=== PATIENT | female | born 1965 | race African-American/Black ===

== ENCOUNTER 2021-05-18 08:53 | Outpatient (CLI) | payer BC | END 2021-05-18 08:54 | disposition home or self-care (01) | LOC: BICRAD 08:53 | PROVIDERS: ATTEND Nurse Practitioner Family | DX: M51.16 Intervertebral disc disorders with radiculopathy, lumbar region (principal); M47.816 Spondylosis without myelopathy or radiculopathy, lumbar region | CPT/HCPCS: 72110 ==